=== PATIENT | male | born 1990 | race Caucasian/White ===

== ENCOUNTER 2016-10-30 10:10 | Emergency (ER) | payer SELFPAY ==
[~2016-10-30] VITALS: Ht 180.3 cm; Wt 94.8 kg
[2016-10-30 10:26] VITALS: BP 146/64
--- NOTE | 2016-10-30 10:35 | NUR ---
Patient ambulated to bed 06.
--- NOTE | 2016-10-30 10:43 | NUR ---
PATIENT PRESENTS TO ED WITH C/O N/V/D X 1 WK---WATERY STOOLS ABOUT 5 EPISODES ABDOMINAL DISCOMFORT;WOKE UP TODAY WITH PRESSURE TYPE MIDSTERNAL CHEST PAIN RADIATING TO LEFT SHOULDER;FULL CLEAR SPEECHHX-DENIES HX;RX-SMOKES MARIJUANA EVERYOTHER DAY .SKIN IS PINK/WARM/DRY; AAOX4 WITH EVEN AND STEADY GAIT; LUNGS CLEAR BL; PT DENIES ACOUGH AT THIS TIME; PATIENT STATES PAIN OF 7/10 AT THIS TIME; VSS; PATIENT POSITIONED FOR COMFORT; HOB ELEVATED; BEDRAILS UP X2; BED DOWN. ER MD MADE AWARE OF PT STATUS.
[2016-10-30] MEDS ORDERED: NACL 0.9% 1,000 ML IV SCH (10:46)
[2016-10-30] MEDS ORDERED: ONDANSETRON 4 MG/2 ML VIAL IVP ONE (10:50)
--- NOTE | 2016-10-30 11:07 | NUR ---
Dr. Dominguez evaluating patient at bedside.
[2016-10-30] MEDS ORDERED: KETOROLAC 30 MG/ML VIAL IVP ONE (11:10)
--- NOTE | 2016-10-30 11:35 | NUR ---
XRAY at bedside.
--- NOTE | 2016-10-30 12:09 | NUR ---
PT LYING ON BED;NO ACUTE DISTRESS NOTE;WILL CONTINUE TO MONITOR PT.
--- NOTE | 2016-10-30 12:40 | NUR ---
Patient discharged with v/s stable. Written and verbal after care instructions given and explained.Patient alert, oriented and verbalized understanding of instructions. Ambulatory with steady gait. All questions addressed prior to discharge. ID band removed. Patient advised to follow up with PMD. Rx of TYLENOL AND ZOFRAN given. Patient educated on indication of medication including possible reaction and side effects. Opportunity to ask questions provided and answered.
[2016-10-30 12:41] VITALS: BP 123/71
== END 2016-10-30 12:40 | disposition home or self-care (01) ==
LOC: MED 10:10
DX: K52.9 Noninfective gastroenteritis and colitis, unspecified (principal); R07.89 Other chest pain; F12.90 Cannabis use, unspecified, uncomplicated
CPT/HCPCS: 36415; 71010; 80053; 81001; 82150; 82553; 83690; 83880; 84484; 85025; 85610; 85730; 93005; 96361; 96374; 96375; 99285; J1885; J2405; J7030; Q0092